=== PATIENT | female | born 1955 | race Caucasian/White ===

== ENCOUNTER 2018-03-03 06:23 | Day surgery (SDC) | payer BC ==
[~2018-03-03 06:23] MED LIST: CEFAZOLIN 2 Gram 2 GM/50 ML BAG IVPB ONE; FAMOTIDINE 20MG TABLET PO ONE; MECLIZINE 25 MG TABLET PO ONE; METOCLOPRAMIDE 10 MG TABLET PO ONE; VANCOMYCIN HCL 1,000 MG in DEXTROSE 5 % IN WATER 250 ML IVPB ONE
[2018-03-03] MEDS ORDERED: 0.9 % SODIUM CHLORIDE 10 ML VIAL IVP ONE (06:24)
[2018-03-03] MEDS ORDERED: KETAMINE HCL 100MG/1ML VIAL INJ ONE (06:24)
[2018-03-03] MEDS ORDERED: PROPOFOL 10 MG/ML VIAL IV ONE (06:24)
[2018-03-03] MEDS ORDERED: DEXAMETHASONE 4 MG/ML 1ML VIAL IVP ONE (06:24)
[2018-03-03] MEDS ORDERED: PHENYLEPHRINE HCL 10 MG/ML VIAL IVP ONE (06:24)
[2018-03-03] MEDS ORDERED: ROPIVACAINE HCL (NAROPIN) /PF 5MG/ML 20ML VIAL IV ONE (06:24)
[2018-03-03] MEDS ORDERED: BUPIVACAINE 0.5% W/EPI MPF 30 ML VIAL IVP ONE (06:24)
[2018-03-03] MEDS ORDERED: TRANEXAMIC ACID 1,000 MG/10 ML ML IV ONE ×2 (06:24)
[2018-03-03] MEDS ORDERED: MIDAZOLAM HCL 2MG/2ML VIAL IV ONE (06:24)
[2018-03-03 07:17] LABS: ABO GROUP B
[2018-03-03 07:18] LABS: ANTIBODY SCREEN NEGATIVE (NEGATIVE); RH TYPE POSITIVE
[2018-03-03] MEDS ORDERED: TRAMADOL HCL 50 MG TABLET PO PRN (11:13)
[2018-03-03] MEDS ORDERED: ZOLPIDEM TARTRATE 5 MG TABLET PO PRN (11:13)
[2018-03-03] MEDS ORDERED: ACETAMINOPHEN 325 MG TAB PO PRN (11:13)
[2018-03-03] MEDS ORDERED: AL HYDROX/MAG HYDROX 30ML UD PO PRN (11:13)
[2018-03-03] MEDS ORDERED: BISACODYL 10 MG SUPP RC PRN (11:13)
[2018-03-03] MEDS ORDERED: ONDANSETRON HCL IV 4 MG/2 ML VIAL IVP PRN (11:13)
[2018-03-03] MEDS ORDERED: KETOROLAC 30 MG/ML VIAL IVP PRN ×2 (11:13)
[2018-03-03] MEDS ORDERED: NALOXONE 0.4 MG/1 ML VIAL IVP PRN (11:13)
[2018-03-03] MEDS ORDERED: HYDROCODONE/APAP 10/325 TABLET PO PRN (11:13)
[2018-03-03] MEDS ORDERED: ACETAMINOPHEN W/ CODEINE 300MG/60MG TABLET PO PRN ×2 (11:13)
[2018-03-03] MEDS ORDERED: MAGNESIUM HYDROXIDE 30 ML UDC PO PRN (11:13)
[2018-03-03] MEDS ORDERED: DIPHENHYDRAMINE HCL 25 MG CAPSULE PO PRN (11:13)
[2018-03-03] MEDS ORDERED: HYDROMORPHONE HCL 2 MG/ML VIAL IM PRN (11:13)
[2018-03-03] MEDS: HYDROCODONE/APAP 10/325 TABLET PO PRN ×2 (13:32→21:17)
[2018-03-03] MEDS: POTASSIUM CHLORIDE/D5-0.9%NACL 20 MEQ/1,000 ML BAG IV SCH (15:57)
--- NOTE | 2018-03-03 15:57 | Rehab Evaluation ---
Patient Information - Patient Information Diagnosis: R knee OA Ordered Treatment: PT Evaluate and Treat Status: Initial Evaluation Surgery: Yes (R TKA) Date of Surgery: 03/03/18 Past Medical/Surgical Hx: PAST MEDICAL/SURGICAL HISTORY Past Surgical History LTKA 10 yrs ago hyst finger sx PMH - Respiratory Hx Respiratory Disorders Yes Hx Bronchitis Yes PMH - Cardiovascular Hx Cardiovascular Disorders No Exercise Tolerance Fair Comment: due to knee pain PMH - Neuro Hx Neurological Disorders Yes Hx Dizziness Yes: vertigo at times PMH - GI Hx Gastrointestinal Disorders Yes Hx Gastroesophageal Reflux Yes: occassionally Hx Weight Loss/Weight Gain Yes: 40 lb gain over last 3 yrs. PMH - Hx Genitourinary Disorders No Comment: s/p hyst PMH - Endocrine Hx Endocrine Disorders No PMH - Musculoskeletal Hx Musculoskeletal Disorders Yes Hx Arthritis Yes PMH - Psych Hx Psychiatric Problems Yes Hx Depression Yes PMH - Hematology/Oncology Hx Hematology/Oncology No Disorders Premorbid Status: Detail (The patient was independent with all mobility prior to surgery.) Social History: Detail (The patient lives aone in a one story house with one step ( curb type step to go from the living room to dining room. The patient has no stairs at the enterance. The patient's bathroom is equipped with a tub/ shower combination, shower seat, elevated toilet seat and grab bars. The patient has a front wheeled walker , single point cane and leg jv baseball coach.) Precautions: [place], Fall, Other (WBAT on the R LE.) - Time With Patient Total Time Spent With Patient (Min): 30 Treatment Procedures: Detail (Initial Evaluation and gait training.) Subjective Information - Subjective Information Per Patient (The patient had no complaints of pain but did complain of R LE weakness.) Objective Data - Mental Status Patient Orientation: Oriented x3 - Visual Perception Appears within normal limits for therapeutic activities - ROM Not within normal limits - Strength/Tone Not within normal limits (The patient's R LE strength was not tested secondary to status post surgery , however the patient had difficulty isolating quad and difficulty lifting R LE off bed (lifted 1 inch), The patient's L LE strength was WNL.) - Bed Mobility Independent (The patient was independent with supine to sit with use of leg jv baseball coach on R LE and indpendent with sit to supine without use of leg jv baseball coach. The patient was independent with scooting up in bed.) - Transfers Independent (The patient was independent with sit to and from stand transfer.) - Balance Balance Sitting: Good Balance Standing: Good - Sensation Intact - Gait Detail (The patient ambulated with front wheeled walker 10 feet x 1 (to bathroom ) and 45 feet x1 with supervision for safety WBAT on the R LE.) Therapy Assessment - Therapy Assessment Detail (The patient was independent with transfers and bed mobility and ambulated with supervision for safety only. The patient exhibited R quad weakness but was able to use leg jv baseball coach to assist with bed mobility. Feel the patient will progress well with HEP and TKA exercises.) Patient Education - Patient Education Teaching Topic: Exercise/Activity (The patient's HEP of SLR and quad sets was reviewed . Will review complete HEP next session.) Problem List - Problem List Physical Therapy Problem List: Detail (1) Decreased R knee AROM and strength as to be expected following surgery.) Goals - Goals Physical Therapy Goals: 1) The patient will be independent with HEP of TKA exercises. 2) The patient demonstrate good unserstanding of stair climbing technique. Prognosis - Prognosis Good Plan - Plan Physical Therapy Plan: PT 1-2 sessions for gait training and instruction in HEP.
--- NOTE | 2018-03-03 16:31 | Operative Note ---
DATE OF SURGERY: 03/03/2018 PREOPERATIVE DIAGNOSIS: End-stage arthrosis of the right knee. POSTOPERATIVE DIAGNOSIS: End-stage arthrosis of the right knee. OPERATION: Cemented right total knee arthroplasty using [employer] II components with a size 6 Oxinium femur, a size 4 stem tibia baseplate, an 11 mm left tibial insert, and a 35 mm all plastic patella. Surgeon: Elfego Melendez MD Anesthesia: Spinal. PREPARATION: Chloraprep. INDIVIDUAL CONSIDERATIONS: None. PROCEDURE: The patient was taken to the operating room, placed supine on the operating room table. She had a successful induction of spinal anesthetic. The right lower extremity was prepped and draped in the usual fashion. The limb was elevated and tourniquet was inflated to 300 mmHg. The patient had a midline approach to the knee. Sharp dissection carried down through skin and subcutaneous tissue. Small veins were coagulated with a Bovie. A medial arthrotomy was performed. The patella was everted and the knee was flexed. She had exposed bone pretty much everywhere with large marginal osteophytes, especially medially. Fat pad was resected, ACL was sacrificed, provisional anterior meniscectomies were performed. The capsule was released from the medial proximal tibia. The initial femoral commercial airplane pilot hole was then made freehand. The intramedullary femoral cutting jig was placed. It was cut in 7.0 degrees of valgus and adjusted for rotation and secured with pins for a 10 mm resection. The initial transverse cut was then made. The skin guide was placed for anterior and posterior commercial airplane pilot holes. It was found that a size 6 would be appropriate. The anterior and posterior cuts followed by chamfer cuts were made. Osteophytes removed, and a size 6 trial was placed and found to fit well. The tibia was brought forward, and the remainder of the meniscal remnants removed with a Bovie. The extraarticular tibial cutting jig was placed. It was cut in neutral with a 3-degree AP slope. Care was taken to adjust the rotation and flexion using the extraarticular alignment guide and bony landmarks. It was set for a 9 mm resection keyed out the high lateral side and secured with pins. When cutting the tibia, care was taken to preserve the PCL insertion on the tibia. After removing large medial osteophytes, it was found that a size 4 would be appropriate. It was adjusted for rotation and secured with pins. With an 11 mm trial and femoral trial, there was excellent motion and stability, ligamentous balance, rotation alignment, patellofemoral tracking were normal. The tourniquet was let down briefly to get bleeders posteriorly and then placed back up again. The patient had a sufficiently thick patella measuring about 22-23 mm of bone. I cut roughly 9 mm with an oscillating saw and was able to easily fit a 35 patella. The 3 commercial airplane pilot holes were then drilled. The knee was then thoroughly irrigated out with pulsatile Betadine and saline to remove any visual or palpable debris. Bony surfaces were then dried. A size 4 stem tibia baseplate was cemented into place followed by impaction of the 11 mm left tibial insert followed by cementing in the size 6 Oxinium femur followed by cementing in the 35 mm patella. The implant surfaces were compressed, excess cement was removed, and after the cement had set, there was excellent motion and stability, ligamentous balance, rotation alignment, and patellofemoral tracking were normal. No lateral release was required. Tourniquet was let down. Hemostasis was obtained with a Bovie. After irrigation, the skin, periosteum, and subcu were infiltrated with 30 mL of 0.5% Marcaine with epinephrine. The capsule was then closed with a running #2 quill, subcu was closed in layers with running 0 quill, skin was closed with ankita. The patient did receive 1 g of tranexamic acid preoperatively. I mixed 1 g of tranexamic acid with 30 mL of saline and injected into the knee through a sterile 18-gauge needle and a sterile bulky compressive CHERELLE-type dressing was applied. The patient tolerated the procedure well. Needle and sponge counts were correct. Estimated blood loss was minimal, and she was taken back to recovery in good condition. There were no complications. ALEENA
[2018-03-03] MEDS: CEFAZOLIN 2 Gram 2 GM/50 ML BAG IVPB SCH (16:40)
[2018-03-03] MEDS: DOCUSATE SODIUM 100 MG CAPSULE PO SCH (21:17)
[2018-03-04] MEDS: CEFAZOLIN 2 Gram 2 GM/50 ML BAG IVPB SCH ×2 (00:29→08:47)
[2018-03-04] MEDS: POTASSIUM CHLORIDE/D5-0.9%NACL 20 MEQ/1,000 ML BAG IV SCH ×2 (00:34→07:56)
[2018-03-04 06:57] LABS: HEMATOCRIT 37.3 % (35.0-47.0); HEMOGLOBIN 11.8 gm/dl (11.6-16.0)
[2018-03-04 07:18] LABS: BLOOD UREA NITROGEN 10 mg/dL (8-23); CREATININE 0.8 mg/dL (0.5-0.9); EST GLOMERULAR FILTRATION RATE > 60 mL/min; GLUCOSE,RANDOM 127 mg/dL (74-109)
[2018-03-04] MEDS: HYDROCODONE/APAP 10/325 TABLET PO PRN ×2 (07:20→10:43)
--- NOTE | 2018-03-04 08:13 | Rehab Evaluation ---
Patient Information - Patient Information Diagnosis: R knee OA Ordered Treatment: OT Evaluate and Treat Status: Initial Evaluation Surgery: Yes (R TKA) Date of Surgery: 03/03/18 Past Medical/Surgical Hx: PAST MEDICAL/SURGICAL HISTORY Past Surgical History LTKA 10 yrs ago hyst finger sx PMH - Respiratory Hx Respiratory Disorders Yes Hx Bronchitis Yes PMH - Cardiovascular Hx Cardiovascular Disorders No Exercise Tolerance Fair Comment: due to knee pain PMH - Neuro Hx Neurological Disorders Yes Hx Dizziness Yes: vertigo at times PMH - GI Hx Gastrointestinal Disorders Yes Hx Gastroesophageal Reflux Yes: occassionally Hx Weight Loss/Weight Gain Yes: 40 lb gain over last 3 yrs. PMH - Hx Genitourinary Disorders No Comment: s/p hyst PMH - Endocrine Hx Endocrine Disorders No PMH - Musculoskeletal Hx Musculoskeletal Disorders Yes Hx Arthritis Yes PMH - Psych Hx Psychiatric Problems Yes Hx Depression Yes PMH - Hematology/Oncology Hx Hematology/Oncology No Disorders Premorbid Status: Detail (The patient was independent with all mobility ADLs and IADLs prior to surgery.) Social History: Detail (The patient lives alone in a one story house with no steps at the entrance and one step (curb type step to go from the living room to dining room. The patient's bathroom is equipped with a tub/shower combination , shower seat, elevated toilet seat and grab bars. The patient has a front wheeled walker , single point cane, telephone messenger, sock aid, long shoe horn and leg sign letterer.) Precautions: [place], Fall, Other (WBAT on the R LE.) - Time With Patient Total Time Spent With Patient (Min): 40 Treatment Procedures: Detail (OT eval low complexity) Subjective Information - Subjective Information Per Patient Objective Data - Pain Pain Present: Yes (04/30) - Mental Status Patient Orientation: Oriented x3 - Visual Perception Appears within normal limits for therapeutic activities - ROM Within normal limits (Jamel UE AROM WNL) - Strength/Tone Within normal limits (Jamel UE strength WNL) - Coordination Appears within normal limits for therapeutic activities - Bed Mobility Independent (Ind with supine to sit) - Transfers Independent (Ind with sit to stand from EOB) - Balance Balance Sitting: Good Balance Standing: Good - Sensation Intact - Gait Detail (Pt ambulating in room with 2 wheeled walker.) - ADL's/IADL's Detail (Pt educated and able to demonstrate learning of modified LE dressing techniques including doffing slipper socks, donning sweat pants and donning tennis shoes. She required use of telephone messenger and long shoe horn as well as min assist to pull heel of right shoe over heel. She reports she will be wearing slippers at home. Reviewed shower, kitchen and laundry modifications, pt verbalized learning.) Therapy Assessment - Therapy Assessment Detail (Pt is Ind with modified LE dressing techniques using adaptive equipment. ) Problem List - Problem List Physical Therapy Problem List: Detail (1) Decreased R knee AROM and strength as to be expected following surgery.) Occupational Therapy Problem List: Detail (No current IP OT problems identified. ) Goals - Goals Physical Therapy Goals: 1) The patient will be independent with HEP of TKA exercises. 2) The patient demonstrate good unserstanding of stair climbing technique. Occupational Therapy Goals: No current IP OT goals identified. Prognosis - Prognosis Good Plan - Plan Physical Therapy Plan: PT 1-2 sessions for gait training and instruction in HEP. Occupational Therapy Plan: No further IP OT recommended. Thank you for this referral.
[2018-03-04] MEDS: DOCUSATE SODIUM 100 MG CAPSULE PO SCH (09:42)
[2018-03-04] MEDS ORDERED: SERTRALINE HCL 50 MG TABLET PO SCH (10:00)
[2018-03-04] MEDS ORDERED: RIVAROXABAN 10 MG TABLET PO SCH (10:00)
[2018-03-04] MEDS ORDERED: FERROUS SULFATE 325 MG TAB PO SCH (10:00)
--- NOTE | 2018-03-04 12:43 | Physical Therapy Tx Note ---
Physical Therapy Tx Note - Treatment Note Tolerated: Good Total Time Spent With Patient: 25 Physical Therapy Tx Note: Detail (The patient was up in chair when PT arrived. The patient had minimal complaints of R knee pain. The patient ambulated with front wheeled walker a distance of 75 feet x 1 WBAT on the R LE independently. The patient does not have stairs at home but demonstrated good understanding of the proper technique. The patient completed TKA HEP including: heel slides, seated, ankle pumps, quad sets, gluteal sets, hamstring sets, SLR with use of strap. The patient continues to demonstrate quad weakness.) Physical Therapy Problem List: Detail (1) Decreased R knee AROM and strength as to be expected following surgery.) Physical Therapy Goals: GOALS MET: 1) The patient will be independent with HEP of TKA exercises. 2) The patient demonstrate good unserstanding of stair climbing technique. Physical Therapy Plan: The patient has met all inpatient goals and is discharged from inpatient PT and is to continue with Home PT.
== END 2018-03-04 12:30 | disposition home or self-care (01) ==
LOC: SUR 06:23 → MEDSURG 11:58 → SUR 03-04 12:30
PROVIDERS: ATTEND Orthopaedic Surgery
DX: M17.11 Unilateral primary osteoarthritis, right knee (principal); K21.9 Gastro-esophageal reflux disease without esophagitis
CPT/HCPCS: 27447; 01402; 64447; 85018; 85014; 80048; 86900; 86901; 86850; J1885; J2405; J3370; J0690 ×2; J3490 ×3; J2795; G8978; G8979 ×2; G8980; G8987; G8988; G8989; 76942; 97110; 97530; J2370; J3480; J7060